=== PATIENT | female | born 1960 | race Caucasian/White ===

== ENCOUNTER 2024-05-06 15:56 | Emergency (ER) | payer MEDICAID ==
[~2024-05-06] VITALS: Ht 162.6 cm; Wt 64.0 kg
[~2024-05-06 15:56] MED LIST: ASPI81TA52 PO; ATEN-169 PO; BUPR150T8 PO; CLOP75TA34 PO; DIPH25CA52 PO; FENO145T38 PO; GABA-530 PO; GLIM4TAB7 PO; HYDR-4353 PO; HYDR25TA4 PO; LEVO100T9 PO; LOSA100T58 PO; LOVA40TA2 PO; METF500T PO; OMEP20TA23 PO; PSEU-259 PO; SITA100T11 PO
[2024-05-06 15:57] VITALS: BP 109/85
[2024-05-06] MEDS ORDERED: OXYC10TA47 PO (17:43)
[2024-05-06 17:54] VITALS: PULSE 61; RESP 16; TEMP 98; O2SAT 99
== END 2024-05-06 17:56 | disposition home or self-care (01) ==
LOC: ER 15:57
DX: M54.9 Dorsalgia, unspecified (principal); E78.00 Pure hypercholesterolemia, unspecified; I10 Essential (primary) hypertension; E11.9 Type 2 diabetes mellitus without complications; I25.10 Atherosclerotic heart disease of native coronary artery without angina pectoris; Z76.0 Encounter for issue of repeat prescription; Z79.899 Other long term (current) drug therapy; Z79.84 Long term (current) use of oral hypoglycemic drugs
CPT/HCPCS: 99281

== ENCOUNTER 2024-09-24 19:16 | Inpatient (IN) | payer MEDICAID ==
[~2024-09-24] VITALS: Ht 162.6 cm; Wt 60.7 kg
[2024-09-24] MEDS: magnesium citrate 296ml oral solution PO ONE (22:31)
[2024-09-25 02:30] LABS: BASOPHILS # (AUTO) 0.1 X10'3 (0-0.2); BASOPHILS % (AUTO) 0.3 % (0-1); EOSINOPHILS % (AUTO) 0.1 % (0-6); HEMATOCRIT 29.4 % (35.0-45.0); HEMOGLOBIN 9.7 g/dl (12.0-16.0); LYMPHOCYTES # (AUTO) 0.8 X10'3 (1.1-4.8); LYMPHOCYTES % (AUTO) 4.7 % (21-51); MEAN CORPUSCULAR HEMOGLOBIN 27.6 PG (27.0-31.0); MEAN CORPUSCULAR HGB CONC 33.1 g/dL (33.0-36.5); MEAN CORPUSCULAR VOLUME 83.5 FL (78-98); MEAN PLATELET VOLUME 7.6 FL (7.4-10.4); MONOCYTES # (AUTO) 1.5 X10'3 (0-0.9); MONOCYTES % (AUTO) 9.3 % (2-12); NEUTROPHILS # (AUTO) 13.7 X10'3 (1.8-7.7); NEUTROPHILS % (AUTO) 85.6 % (42-75); PLATELET COUNT 438 X10'3 (140-440); RED BLOOD COUNT 3.52 X10'6 (4.20-5.60); RED CELL DISTRIBUTION WIDTH 16.7 % (11.5-14.5)
[2024-09-25 02:45] LABS: ALANINE AMINOTRANSFERASE 24 U/L (12-78); ALBUMIN 3.5 G/DL (3.4-5.0); ALKALINE PHOSPHATASE 45 IU/L (46-116); ANION GAP 11 (8-16); ASPARTATE AMINO TRANSFERASE 29 U/L (10-37); BILIRUBIN,TOTAL 0.3 MG/DL (0.1-1.0); BLOOD UREA NITROGEN 30 MG/DL (7-18); BUN/CREATININE RATIO 17.4 (10.0-20.0); CALCIUM 9.8 MG/DL (8.5-10.1); CHLORIDE 93 MMOL/L (99-107); CREATININE 1.72 MG/DL (0.40-0.90); GLUCOSE 148 MG/DL (70-104); POTASSIUM 3.9 MMOL/L (3.5-5.1); SODIUM 131 MMOL/L (135-145); TOTAL CARBON DIOXIDE 27.3 MMOL/L (24-32); TOTAL PROTEIN 7.1 G/DL (6.4-8.2); eCRCL 29 ML/MIN; eGFR 30 ML/MIN
[2024-09-25] MEDS: normal saline 1000ml 1,000 ML IV ONE (03:51)
[2024-09-25 03:54] LABS: BILIRUBIN,URINE NEGATIVE (Neg); CLARITY,URINE CLEAR (Clear); COLOR,URINE YELLOW (Yellow); GLUCOSE, URINE 250 mg/dl (Neg); KETONES,URINE NEGATIVE (Neg); LEUKOCYTE ESTERASE ,URINE NEGATIVE (Neg); NITRITES, URINE NEGATIVE (Neg); OCCULT BLOOD,URINE NEGATIVE (Neg); PROTEIN,URINE NEGATIVE (Neg); UROBILINOGEN,URINE 0.2 E.U/dL (0.2-1.0)
[2024-09-25 03:56] LABS: UA COLLECTION TYPE CLN CATCH MIDSTREAM
[2024-09-25] MEDS ORDERED: potassium Cl 40MEQ/1/2NS 520ml 520 ML IV PRN (05:00)
[2024-09-25] MEDS ORDERED: magnesium sulf-water 2g/50mL 50 ML IV PRN (05:00)
[2024-09-25] MEDS ORDERED: mag hydrox/Alum hydrox/simeth 30ml oral suspension PO PRN (05:00)
[2024-09-25] MEDS ORDERED: magnesium hydroxide 30ml (MOM) UD suspension PO PRN (05:00)
[2024-09-25] MEDS ORDERED: acetaminophen 325mg tablet PO PRN (05:00)
[2024-09-25] MEDS ORDERED: magnesium sulf-water 4G/100mL 100 ML IV PRN (05:00)
[2024-09-25] MEDS ORDERED: magnesium Cl slow-release 64mg tablet PO PRN (05:00)
[2024-09-25] MEDS ORDERED: potassium Cl 20 mEq SR tablet PO PRN (05:00)
[2024-09-25] MEDS ORDERED: DEXTROSE 15 GM of carb/4 tabs (each vial/BOTTLE has 4 tablets) PO PRN ×2 (05:35)
[2024-09-25] MEDS ORDERED: glucagon, human recombinant 1mg kit SUBCUT PRN (05:35)
[2024-09-25] MEDS ORDERED: dextrose 50%-water 50ml dispensing syringe IV PRN ×2 (05:35)
[2024-09-25] MEDS: normal saline 1000ml 1,000 ML IV SCH (05:51)
[2024-09-25] MEDS: INSULIN LISPRO 100 UNIT/ML INSULN.PEN MULTI-DOSE SQ SCH (07:00)
[2024-09-25] MEDS ORDERED: OXYC10TA47 PO (07:34)
[2024-09-25] MEDS: acetaminophen 1,000mg/100ml IV 100 ML IV ONE (07:42)
[2024-09-25] MEDS: CefTRIAXone/D5W-Rocephin 1gm 50 ML IV ONE (07:43)
[2024-09-25 08:00] VITALS: RESP 16; O2SAT 99
[2024-09-25] MEDS: K and/or MAG REPLACEMENT MC SCH (08:00)
[2024-09-25] MEDS: docusate sod 100mg capsule PO SCH (08:10)
[2024-09-25 08:24] LABS: MAGNESIUM 2.8 MG/DL (1.5-2.4); POTASSIUM 3.9 MMOL/L (3.5-5.1)
[2024-09-25 08:44] LABS: THYROID STIMULATING HORMONE 2.44 ulU/ml (0.34-4.50)
[2024-09-25] MEDS ORDERED: PERFLUTREN PROTEIN-A MICROSPHR (Optison) 0.22 MG/ML 3ML VIAL IV ONE (08:45)
[2024-09-25 09:43] VITALS: BP 158/79; PULSE 80; RESP 16; TEMP 98.9; O2SAT 99
[2024-09-25] MEDS: lactulose 20gm/30ml cup PO SCH (13:17)
[2024-09-25] MEDS: mineral oil 133ml enema RC STA (13:43)
[2024-09-25] MEDS ORDERED: PANT40TA54 PO (14:00)
[2024-09-25] MEDS ORDERED: FENO160T PO (14:00)
[2024-09-25] MEDS ORDERED: SEMA1PEN3 SQ (14:00)
[2024-09-25] MEDS ORDERED: HYDR-3686 PO (14:05)
[2024-09-25 14:32] LABS: TOTAL PROTEIN,URINE RANDOM 18.2 MG/DL
[2024-09-25] MEDS: HYDROcodone/acetaminophen 10/325mg tab PO ONE (16:28)
[2024-09-25 18:00] VITALS: BP 156/79; PULSE 88; RESP 18; TEMP 98.5; O2SAT 100
[2024-09-25] MEDS: magnesium hydroxide 30ml (MOM) UD suspension PO ONE (21:06)
[2024-09-25] MEDS: HYDROcodone/acetaminophen 10/325mg tab PO PRN (21:07)
[2024-09-25 22:00] VITALS: BP 141/70; PULSE 84; RESP 16; TEMP 97.5; O2SAT 98
[2024-09-26 06:00] VITALS: BP 133/67; PULSE 85; RESP 16; TEMP 97.4; O2SAT 96
[2024-09-26] MEDS: ondansetron/PF 4mg/2ml inj IV PRN (06:17)
[2024-09-26 06:42] LABS: BASOPHILS % (AUTO) 0.4 % (0-1); EOSINOPHILS % (AUTO) 0.2 % (0-6); HEMATOCRIT 32.6 % (35.0-45.0); HEMOGLOBIN 10.8 g/dl (12.0-16.0); LYMPHOCYTES # (AUTO) 1.1 X10'3 (1.1-4.8); LYMPHOCYTES % (AUTO) 8.8 % (21-51); MEAN CORPUSCULAR HEMOGLOBIN 27.9 PG (27.0-31.0); MEAN CORPUSCULAR HGB CONC 33.1 g/dL (33.0-36.5); MEAN CORPUSCULAR VOLUME 84.5 FL (78-98); MEAN PLATELET VOLUME 7.6 FL (7.4-10.4); MONOCYTES # (AUTO) 0.9 X10'3 (0-0.9); MONOCYTES % (AUTO) 7.5 % (2-12); NEUTROPHILS # (AUTO) 10.2 X10'3 (1.8-7.7); NEUTROPHILS % (AUTO) 83.1 % (42-75); PLATELET COUNT 471 X10'3 (140-440); RED BLOOD COUNT 3.86 X10'6 (4.20-5.60); RED CELL DISTRIBUTION WIDTH 16.6 % (11.5-14.5); WHITE BLOOD COUNT 12.2 X10'3 (4.5-11.0)
[2024-09-26 07:04] LABS: ALANINE AMINOTRANSFERASE 30 U/L (12-78); ALBUMIN 3.5 G/DL (3.4-5.0); ALBUMIN/GLOBULIN RATIO 0.9 (1.1-1.5); ALKALINE PHOSPHATASE 50 IU/L (46-116); ANION GAP 10 (8-16); ASPARTATE AMINO TRANSFERASE 39 U/L (10-37); BILIRUBIN,TOTAL 0.6 MG/DL (0.1-1.0); BLOOD UREA NITROGEN 24 MG/DL (7-18); BUN/CREATININE RATIO 18.8 (10.0-20.0); CALCIUM 9.5 MG/DL (8.5-10.1); CHLORIDE 99 MMOL/L (99-107); CREATININE 1.28 MG/DL (0.40-0.90); GLUCOSE 99 MG/DL (70-104); MAGNESIUM 2.7 MG/DL (1.5-2.4); POTASSIUM 3.5 MMOL/L (3.5-5.1); SODIUM 136 MMOL/L (135-145); TOTAL CARBON DIOXIDE 27.5 MMOL/L (24-32); TOTAL PROTEIN 7.2 G/DL (6.4-8.2); eCRCL 38 ML/MIN; eGFR 42 ML/MIN
[2024-09-26 08:00] VITALS: RESP 16; O2SAT 96
[2024-09-26 10:00] VITALS: BP 150/79; PULSE 83; RESP 17; TEMP 98.4; O2SAT 98
[2024-09-26] MEDS: mineral oil 133ml enema RC ONE (13:00)
[2024-09-26 18:00] VITALS: BP 155/78; PULSE 88; RESP 13; TEMP 97; O2SAT 96
[2024-09-26 20:00] VITALS: RESP 18; O2SAT 96
[2024-09-26] MEDS ORDERED: mineral oil 133ml enema RC PRN (20:00)
[2024-09-26] MEDS: gabapentin 100mg capsule PO SCH (21:00)
[2024-09-26] MEDS: hydrOXYzine 25 MG tablet PO SCH (21:25)
[2024-09-26] MEDS: diphenhydrAMINE 25mg capsule PO SCH (21:26)
[2024-09-26 22:00] VITALS: BP 153/73; PULSE 84; RESP 15; TEMP 97.5; O2SAT 98
[2024-09-26] MEDS: diatr meglu/diatrizoate 30ml oral sol.-(3 dose) bottle PO SCH (22:21)
[2024-09-27 06:00] VITALS: BP 143/73; PULSE 83; RESP 16; TEMP 97; O2SAT 98
[2024-09-27 06:39] LABS: BASOPHILS % (AUTO) 0.5 % (0-1); EOSINOPHILS % (AUTO) 0.1 % (0-6); HEMATOCRIT 28.2 % (35.0-45.0); HEMOGLOBIN 9.3 g/dl (12.0-16.0); LYMPHOCYTES # (AUTO) 0.8 X10'3 (1.1-4.8); LYMPHOCYTES % (AUTO) 8.2 % (21-51); MEAN CORPUSCULAR HGB CONC 32.9 g/dL (33.0-36.5); MEAN PLATELET VOLUME 7.6 FL (7.4-10.4); MONOCYTES # (AUTO) 0.7 X10'3 (0-0.9); MONOCYTES % (AUTO) 7.2 % (2-12); NEUTROPHILS # (AUTO) 8.2 X10'3 (1.8-7.7); PLATELET COUNT 376 X10'3 (140-440); RED BLOOD COUNT 3.31 X10'6 (4.20-5.60); WHITE BLOOD COUNT 9.7 X10'3 (4.5-11.0)
[2024-09-27] MEDS ORDERED: iohexol 300mg/ml 100ml inj. ONE (07:18)
[2024-09-27 07:20] LABS: ALANINE AMINOTRANSFERASE 24 U/L (12-78); ALBUMIN 2.9 G/DL (3.4-5.0); ALBUMIN/GLOBULIN RATIO 0.9 (1.1-1.5); ALKALINE PHOSPHATASE 47 IU/L (46-116); ANION GAP 13 (8-16); ASPARTATE AMINO TRANSFERASE 35 U/L (10-37); BILIRUBIN,TOTAL 0.4 MG/DL (0.1-1.0); BLOOD UREA NITROGEN 25 MG/DL (7-18); BUN/CREATININE RATIO 21.6 (10.0-20.0); CALCIUM 8.9 MG/DL (8.5-10.1); CHLORIDE 105 MMOL/L (99-107); CREATININE 1.16 MG/DL (0.40-0.90); GLUCOSE 100 MG/DL (70-104); MAGNESIUM 2.1 MG/DL (1.5-2.4); SODIUM 140 MMOL/L (135-145); TOTAL CARBON DIOXIDE 22.1 MMOL/L (24-32); TOTAL PROTEIN 6.2 G/DL (6.4-8.2); eCRCL 42 ML/MIN; eGFR 47 ML/MIN
[2024-09-27] MEDS: fenofibrate 145mg tablet PO SCH (07:37)
[2024-09-27] MEDS: levoTHYROXINE 100mcg tablet PO SCH (07:37)
[2024-09-27] MEDS: BUPROPION HCL 150MG XL 24 HR 150 MG TAB PO SCH (07:37)
[2024-09-27] MEDS: potassium Cl 20 mEq SR tablet PO PRN (07:37)
[2024-09-27] MEDS: clopidogrel 75mg tablet PO SCH (07:38)
[2024-09-27 08:00] VITALS: RESP 18; O2SAT 98
[2024-09-27] MEDS: pantoprazole 40mg Tablet.DR PO SCH (08:53)
[2024-09-27 10:00] VITALS: BP 165/81; PULSE 82; RESP 18; TEMP 97.7; O2SAT 98
[2024-09-27 11:36] VITALS: RESP 17
[2024-09-27] MEDS: potassium Cl 20 mEq SR tablet PO STA ×2 (11:36→15:11)
[2024-09-27] MEDS ORDERED: POLY17PO10 PO (12:42)
[2024-09-27] MEDS ORDERED: LACT-373 PO (12:42)
[2024-09-27] MEDS ORDERED: DOCU-148 PO (12:42)
[2024-09-27] MEDS ORDERED: POTA-207 PO (14:32)
== END 2024-09-27 15:50 | disposition home or self-care (01) | DRG 244 ==
LOC: ER 19:17 → ED HOLD 09-25 05:04 → ORTHO 4S 09-25 07:19
PROVIDERS: ADMIT Internal Medicine Critical Care Medicine; ATTEND Family Medicine
DX: K57.30 Diverticulosis of large intestine without perforation or abscess without bleeding (principal); N17.0 Acute kidney failure with tubular necrosis; D64.9 Anemia, unspecified; E03.9 Hypothyroidism, unspecified; E11.9 Type 2 diabetes mellitus without complications; E78.00 Pure hypercholesterolemia, unspecified; K56.41 Fecal impaction; I10 Essential (primary) hypertension; I25.10 Atherosclerotic heart disease of native coronary artery without angina pectoris; T50.995A Adverse effect of other drugs, medicaments and biological substances, initial encounter; Y92.89 Other specified places as the place of occurrence of the external cause; Z86.73 Personal history of transient ischemic attack (TIA), and cerebral infarction without residual deficits; Z87.891 Personal history of nicotine dependence
CPT/HCPCS: 36415; 71045; 74018; 74176; 74177; 80053; 81003; 82570; 82728; 82948; 83036; 83540; 83550; 83605; 83690; 83735; 83930; 83935; 84132; 84145; 84156; 84300; 84443; 85025; 87081; 87207; 93306; 96360; 99285; G0378; J2405; J7030; Q0163; Q0177; Q9963; Q9967